=== PATIENT | male | born 1945 | race American Indian/Alaskan Native ===

== ENCOUNTER 2019-09-05 23:31 | Inpatient (IN) | payer MEDICARE, OTHER ==
[2019-09-06] MEDS ORDERED: predniSONE 20 MG TAB PO ONE (02:08)
[2019-09-06] MEDS ORDERED: ALBUTEROL 2.5 MG/3 ML NEBU IH ONE (02:10)
[2019-09-06] MEDS ORDERED: IPRATROPIUM 0.02% NEBU 2.5 ML IH ONE (02:10)
--- NOTE | 2019-09-06 02:13 | Emergency Department Report ---
ED Shortness of Breath HPI - General Chief Complaint: Dyspnea/Respdistress Stated Complaint: SMITH Time Seen by Provider: 09/06/19 02:08 Source: patient Mode of arrival: Ambulatory Limitations: No Limitations - History of Present Illness Initial Comments: Mr. Coelho is a very pleasant 74-year-old male with history of COPD who presents with shortness of breath cough for several days. Productive cough with white- yellow sputum. Does not use oxygen at home. Worse with exertion. PCP Mary Annecare Shortness of breath worse with exertion. Positive subjective fever. MD Complaint: shortness of breath, cough -: Gradual, days(s) (2) Severity: severe Consistency: constant Improves With: nothing Worsens With: exertion Known History Of: COPD Associated Symptoms: cough, sputum production - Related Data Home Medications Medication Instructions Recorded Confirmed Last Taken Tamsulosin [Flomax] 0.4 mg PO QDAY 09/06/19 09/06/19 Unknown Allergies Allergy/AdvReac Type Severity Reaction Status Date / Time No Known Allergies Allergy Unverified 09/05/19 23:44 ED Review of Systems ROS: Stated complaint: SMITH Other details as noted in HPI Comment: All other systems reviewed and negative Constitutional: fever, malaise Respiratory: cough, shortness of breath Cardiovascular: denies: chest pain Gastrointestinal: denies: abdominal pain ED Past Medical Hx - Past Medical History Previous Medical History?: Yes Hx COPD: Yes (Doesn't use O2 at home) Additional medical history: Eye infection - Social History Smoking Status: Former Smoker Other Social History: Retired, worked in the medical industry, worked in a blood bank. - Medications Home Medications: Home Medications Medication Instructions Recorded Confirmed Last Taken Type Tamsulosin [Flomax] 0.4 mg PO QDAY 09/06/19 09/06/19 Unknown History ED Physical Exam - General Limitations: No Limitations General appearance: alert, other (mild work of breathing, speaking full sentences with effort) - Head Head exam: Present: atraumatic, normocephalic - Eye Eye exam: Present: normal appearance - ENT ENT exam: Present: mucous membranes moist - Neck Neck exam: Present: normal inspection, full ROM. Absent: tenderness, meningismus - Respiratory Respiratory exam: Present: decreased breath sounds, prolonged expiratory, other (poor air movement) - Cardiovascular Cardiovascular Exam: Present: normal rhythm, tachycardia, normal heart sounds. Absent: systolic murmur, diastolic murmur, rubs, gallop - GI/Abdominal GI/Abdominal exam: Present: soft, normal bowel sounds. Absent: distended, tenderness, guarding, rebound - Rectal Rectal exam: Present: deferred - Extremities Exam Extremities exam: Present: normal inspection - Neurological Exam Neurological exam: Present: alert, oriented X3 - Psychiatric Psychiatric exam: Present: normal affect, normal mood - Skin Skin exam: Present: warm, dry, intact, normal color. Absent: rash ED Course Vital Signs 09/05/19 09/05/19 09/06/19 23:40 23:50 02:05 Temperature 98.9 F 98.9 F 98.3 F Pulse Rate 125 H 120 H 113 H Pulse Rate [ Anterior Bilateral Throughout] Respiratory 18 18 16 Rate Respiratory Rate [Anterior Bilateral Throughout] Blood Pressure 135/76 135/76 133/76 Blood Pressure 133/76 [Left] O2 Sat by Pulse 90 88 91 Oximetry 09/06/19 09/06/19 09/06/19 02:06 02:15 02:30 Temperature Pulse Rate Pulse Rate [ 101 H Anterior Bilateral Throughout] Respiratory 14 16 Rate Respiratory 18 Rate [Anterior Bilateral Throughout] Blood Pressure 133/76 129/82 Blood Pressure [Left] O2 Sat by Pulse 93 93 Oximetry 09/06/19 09/06/19 02:45 03:00 Temperature Pulse Rate 104 H 93 H Pulse Rate [ Anterior Bilateral Throughout] Respiratory 15 19 Rate Respiratory Rate [Anterior Bilateral Throughout] Blood Pressure 133/76 151/78 Blood Pressure [Left] O2 Sat by Pulse 98 92 Oximetry ED Medical Decision Making - Lab Data Result diagrams: 09/06/19 02:15 09/06/19 02:15 - EKG Data EKG shows normal: sinus rhythm, axis, intervals, QRS complexes Rate: normal, tachycardia (rate 100 bpm) - EKG Data Interpretation: no acute changes, normal EKG - Radiology Data Radiology results: report reviewed Chest radiograph: No acute process according to radiologist's impression - Medical Decision Making Acute respiratory failure and hypoxia acute COPD exacerbation requiring oxygen supplementation. Admitted to the hospitalist service. Critical care attestation.: If time is entered above; I have spent that time in minutes in the direct care of this critically ill patient, excluding procedure time. ED Disposition Clinical Impression: Acute respiratory failure with hypoxia, COPD with acute exacerbation Disposition: OP ADMIT IP TO THIS HOSP Is pt being admited?: Yes Does the pt Need Aspirin: No Condition: Stable
[2019-09-06 02:40] LABS: Hematocrit 41.8 % (35.5-45.6); Hemoglobin 13.7 gm/dl (11.8-15.2); Mean Corpuscular HGB Conc 33 % (32-34); Mean Corpuscular Volume 96 fl (84-94); Platelet Count 298 K/mm3 (140-440); Red Blood Count 4.35 M/mm3 (3.65-5.03); Red Cell Distribution Width 14.1 % (13.2-15.2)
[2019-09-06 02:46] LABS: BUN/Creatinine Ratio 15; Blood Urea Nitrogen 18 mg/dL (9-20); Hemolysis Index 5
--- NOTE | 2019-09-06 02:51 | XRay Report ---
CHEST 1 VIEW, 09/06/2019 2:18 AM CLINICAL INFORMATION/INDICATION: Shortness of breath. Productive cough. COMPARISON: None FINDINGS: SUPPORT DEVICES: None. HEART: The cardiac silhouette is normal in size. LUNGS/PLEURA: There is no focal airspace consolidation or significant pleural effusion. ADDITIONAL FINDINGS: No additional acute findings. IMPRESSION: 1. No evidence of acute cardiopulmonary process. Signer Name: Bety Murdock MD Signed: 09/06/2019 2:46 AM Workstation Name: [employer]
[2019-09-06] MEDS ORDERED: levoFLOXacin 750 MG TAB PO ONE (03:30)
[2019-09-06 04:52] LABS: Calcium 9.3 mg/dL (8.4-10.2)
[2019-09-06 05:45] LABS: Band Neutrophils # (Manual) 3.6 K/mm3; Basophils % (Manual) 0 % (0.0-1.8); Monocytes % (Manual) 0 % (0.0-7.3); Total Cells Counted 100
[2019-09-06 05:46] LABS: Platelet Estimate Consistent w Auto; RBC Morphology Normal
--- NOTE | 2019-09-06 07:46 | History and Physical Report ---
History of Present Illness Date of admission: 09/06/19 05:27 Chief complaint: Shortness of breath History of present illness: 74-year-old man with past medical history of COPD who presents with shortness of breath times several days. Dyspnea on exertion, cough productive of scant whitish-yellowish sputum. He states that this is consistent with his COPD exacerbation. He has been having shortness of breath cough and wheezing. Sputum production. Denies orthopnea. Denies chest pain. Denies fever. -He uses Advair at home and albuterol for breakthrough Past medical history; COPD, BPH Past surgical history; left rotator cuff surgery, arthroscopic surgery of both knees Social history; retired, used to work in the [employer]. Denies alcohol or illicit drug abuse.former smoker, quit 6 years ago Family history; denies family history of asthma or chronic lung disease Medications and Allergies Allergies Allergy/AdvReac Type Severity Reaction Status Date / Time No Known Allergies Allergy Unverified 09/05/19 23:44 Home Medications Medication Instructions Recorded Confirmed Last Taken Type ALBUTEROL Inhaler (OR & NICU) 2 puff IH QID PRN 09/06/19 09/06/19 Unknown History [ProAir HFA Inhaler] Fluticasone/Salmeterol [Advair 250 mcg PO BID 09/06/19 09/06/19 Unknown History Diskus 250-50 mcg] Loratadine 10 mg PO DAILY 09/06/19 09/06/19 Unknown History Montelukast 10 mg PO QPM 09/06/19 09/06/19 Unknown History Simvastatin 40 mg PO HS 09/06/19 09/06/19 Unknown History Tamsulosin [Flomax] 0.4 mg PO QDAY 09/06/19 09/06/19 Unknown History Review of Systems All systems: negative Constitutional: no anorexia Ears, nose, mouth and throat: no ear pain Cardiovascular: no chest pain Respiratory: cough, cough with sputum, shortness of breath Gastrointestinal: no nausea Genitourinary Male: no dysuria Rectal: no pain Musculoskeletal: no neck stiffness Integumentary: no rash Neurological: no head injury Psychiatric: no anxiety Endocrine: no cold intolerance Hematologic/Lymphatic: no easy bruising Allergic/Immunologic: no urticaria Exam - Constitutional Vitals: Temp Pulse Resp BP Pulse Ox 98.3 F 101 H 22 132/99 94 09/06/19 02:05 09/06/19 05:30 09/06/19 05:30 09/06/19 05:30 09/06/19 05:45 General appearance: Present: no acute distress, well-nourished - EENT Eyes: Present: PERRL ENT: hearing intact, clear oral mucosa - Neck Neck: Present: supple, normal ROM - Respiratory Respiratory effort: normal Respiratory: bilateral: diminished - Cardiovascular Heart Sounds: Present: S1 & S2. Absent: rub, click - Extremities Extremities: pulses symmetrical, No edema Peripheral Pulses: within normal limits - Abdominal General gastrointestinal: Present: soft, non-tender, non-distended, normal bowel sounds Male genitourinary: Present: normal - Integumentary Integumentary: Present: clear, warm, dry - Musculoskeletal Musculoskeletal: gait normal, strength equal bilaterally - Psychiatric Psychiatric: appropriate mood/affect, intact judgment & insight - Neurologic Neurologic: CNII-XII intact, moves all extremities Results - Labs CBC & Chem 7: 09/06/19 02:15 09/06/19 02:15 Labs: Laboratory Last Values WBC 15.1 K/mm3 (4.5-11.0) H 09/06/19 02:15 RBC 4.35 M/mm3 (3.65-5.03) 09/06/19 02:15 Hgb 13.7 gm/dl (11.8-15.2) 09/06/19 02:15 Hct 41.8 % (35.5-45.6) 09/06/19 02:15 MCV 96 fl (84-94) H 09/06/19 02:15 MCH 31 pg (28-32) 09/06/19 02:15 MCHC 33 % (32-34) 09/06/19 02:15 RDW 14.1 % (13.2-15.2) 09/06/19 02:15 Plt Count 298 K/mm3 (140-440) 09/06/19 02:15 Add Manual Diff Complete 09/06/19 02:15 Total Counted 100 09/06/19 02:15 Seg Neutrophils % [employer] Worker 09/06/19 02:15 Seg Neuts % (Manual) 69.0 % (40.0-70.0) 09/06/19 02:15 Band Neutrophils % 24.0 % 09/06/19 02:15 Lymphocytes % (Manual) 0 % (13.4-35.0) L 09/06/19 02:15 Reactive Lymphs % (Man) 0 % 09/06/19 02:15 Monocytes % (Manual) 0 % (0.0-7.3) 09/06/19 02:15 Eosinophils % (Manual) 7.0 % (0.0-4.3) H 09/06/19 02:15 Basophils % (Manual) 0 % (0.0-1.8) 09/06/19 02:15 Metamyelocytes % 0 % 09/06/19 02:15 Myelocytes % 0 % 09/06/19 02:15 Promyelocytes % 0 % 09/06/19 02:15 Blast Cells % 0 % 09/06/19 02:15 Nucleated RBC % 1.0 % (0.0-0.9) H 09/06/19 02:15 Seg Neutrophils # Man 10.4 K/mm3 (1.8-7.7) H 09/06/19 02:15 Band Neutrophils # 3.6 K/mm3 09/06/19 02:15 Lymphocytes # (Manual) 0.0 K/mm3 (1.2-5.4) L 09/06/19 02:15 Abs React Lymphs (Man) 0.0 K/mm3 09/06/19 02:15 Monocytes # (Manual) 0.0 K/mm3 (0.0-0.8) 09/06/19 02:15 Eosinophils # (Manual) 1.1 K/mm3 (0.0-0.4) H 09/06/19 02:15 Basophils # (Manual) 0.0 K/mm3 (0.0-0.1) 09/06/19 02:15 Metamyelocytes # 0.0 K/mm3 09/06/19 02:15 Myelocytes # 0.0 K/mm3 09/06/19 02:15 Promyelocytes # 0.0 K/mm3 09/06/19 02:15 Blast Cells # 0.0 K/mm3 09/06/19 02:15 WBC Morphology Not Reportable 09/06/19 02:15 Hypersegmented Neuts Not Reportable 09/06/19 02:15 Hyposegmented Neuts Not Reportable 09/06/19 02:15 Hypogranular Neuts Not Reportable 09/06/19 02:15 Smudge Cells Not Reportable 09/06/19 02:15 Toxic Granulation Not Reportable 09/06/19 02:15 Toxic Vacuolation Not Reportable 09/06/19 02:15 Dohle Bodies Not Reportable 09/06/19 02:15 Pelger-Huet Anomaly Not Reportable 09/06/19 02:15 Leatha Rods Not Reportable 09/06/19 02:15 Platelet Estimate Consistent w auto 09/06/19 02:15 Clumped Platelets Not Reportable 09/06/19 02:15 Plt Clumps, EDTA Not Reportable 09/06/19 02:15 Large Platelets Not Reportable 09/06/19 02:15 Giant Platelets Not Reportable 09/06/19 02:15 Platelet Satelliting Not Reportable 09/06/19 02:15 Plt Morphology Comment Not Reportable 09/06/19 02:15 RBC Morphology Normal 09/06/19 02:15 Dimorphic RBCs Not Reportable 09/06/19 02:15 Polychromasia Not Reportable 09/06/19 02:15 Hypochromasia Not Reportable 09/06/19 02:15 Poikilocytosis Not Reportable 09/06/19 02:15 Anisocytosis Not Reportable 09/06/19 02:15 Microcytosis Not Reportable 09/06/19 02:15 Macrocytosis Not Reportable 09/06/19 02:15 Spherocytes Not Reportable 09/06/19 02:15 Pappenheimer Bodies Not Reportable 09/06/19 02:15 Sickle Cells Not Reportable 09/06/19 02:15 Target Cells Not Reportable 09/06/19 02:15 Tear Drop Cells Not Reportable 09/06/19 02:15 Ovalocytes Not Reportable 09/06/19 02:15 Helmet Cells Not Reportable 09/06/19 02:15 Goldstein-Hal[place] Bodies Not Reportable 09/06/19 02:15 [place] Rings Not Reportable 09/06/19 02:15 [employer] Cells Not Reportable 09/06/19 02:15 Bite Cells Not Reportable 09/06/19 02:15 Crenated Cell Not Reportable 09/06/19 02:15 Elliptocytes Not Reportable 09/06/19 02:15 Acanthocytes (Spur) Not Reportable 09/06/19 02:15 Rouleaux Not Reportable 09/06/19 02:15 Hemoglobin C Crystals Not Reportable 09/06/19 02:15 Schistocytes Not Reportable 09/06/19 02:15 Malaria parasites Not Reportable 09/06/19 02:15 Usman Bodies Not Reportable 09/06/19 02:15 Hem Pathologist Commnt No 09/06/19 02:15 Sodium 137 mmol/L (137-145) 09/06/19 02:15 Potassium 3.7 mmol/L (3.6-5.0) 09/06/19 02:15 Chloride 100.1 mmol/L (98-107) 09/06/19 02:15 Carbon Dioxide 23 mmol/L (22-30) 09/06/19 02:15 Anion Gap 18 mmol/L 09/06/19 02:15 BUN 18 mg/dL (9-20) 09/06/19 02:15 Creatinine 1.2 mg/dL (0.8-1.5) 09/06/19 02:15 Estimated GFR > 60 ml/min 09/06/19 02:15 BUN/Creatinine Ratio 15 % 09/06/19 02:15 Glucose 145 mg/dL (75-100) H 09/06/19 02:15 Calcium 9.3 mg/dL (8.4-10.2) 09/06/19 02:15 Troponin T < 0.010 ng/mL (0.00-0.029) 09/06/19 02:15 - Imaging and Cardiology Chest x-ray: image reviewed (No acute findings) Assessment and Plan Assessment and plan: 74-year-old man with COPD exacerbation Copd exacerbation; steroids, nebs, pulmonology consults, aggressive chest PT BPH continue Flomax DVT prophylaxis; Lovenox and early ambulation VTE prophylaxis?: Chemical
[2019-09-06] MEDS ORDERED: ACETAMINOPHEN 325 MG TAB PO PRN (07:49)
[2019-09-06] MEDS ORDERED: ALBUTEROL 2.5 MG/3 ML NEBU IH PRN (07:49)
[2019-09-06] MEDS ORDERED: ONDANSETRON 4 MG/2 ML INJ IV PRN (07:49)
[2019-09-06] MEDS: IPRATROPIUM/ALBUTEROL SULFATE 3 ML AMPUL.NEB IH SCH ×3 (09:14→21:59)
[2019-09-06] MEDS: BUDESONIDE 0.5 MG/2 ML NEBU IH SCH ×2 (09:14→21:59)
[2019-09-06] MEDS: ARFORMOTEROL 15 MCG/2 ML NEBU IH SCH ×2 (09:14→21:59)
[2019-09-06] MEDS: TAMSULOSIN 0.4 MG CAP PO SCH (10:07)
[2019-09-06] MEDS: methylPREDNISolone Sod Succinate 40 MG/1 ML INJ IV SCH ×2 (14:23→21:42)
--- NOTE | 2019-09-06 14:28 | Consultation ---
History of Present Illness Consult date: 09/06/19 Reason for consult: dyspnea, cough, COPD History of present illness: pulmonary and critical care consultation Dr. Almanzar thank you for asking us to participate in the care of this patient. 74-year-old man with past medical history of COPD who presents with shortness of breath for several days. Dyspnea on exertion, cough productive of scant whitish-yellowish sputum.Patient also complained nasal congestion. Patient said he has some sinus problems. Patient denies fever, chest pain. Patient has histo ry of smoking 30 years 1/2 a pack a day. 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 Patient denies other medical problems. Patient resting on 2 litres O2. O2 saturation 98%. Chest xray reported no evidence of cardiopulmonary process. Past History Past Medical History: COPD Medications and Allergies Allergies Allergy/AdvReac Type Severity Reaction Status Date / Time No Known Allergies Allergy Unverified 09/05/19 23:44 Home Medications Medication Instructions Recorded Confirmed Last Taken Type ALBUTEROL Inhaler (OR & NICU) 2 puff IH QID PRN 09/06/19 09/06/19 Unknown History [ProAir HFA Inhaler] Fluticasone/Salmeterol [Advair 250 mcg PO BID 09/06/19 09/06/19 Unknown History Diskus 250-50 mcg] Loratadine 10 mg PO DAILY 09/06/19 09/06/19 Unknown History Montelukast 10 mg PO QPM 09/06/19 09/06/19 Unknown History Simvastatin 40 mg PO HS 09/06/19 09/06/19 Unknown History Tamsulosin [Flomax] 0.4 mg PO QDAY 09/06/19 09/06/19 Unknown History Active Meds: Active Medications Acetaminophen (Tylenol) 650 mg PO Q4H PRN PRN Reason: Pain MILD(1-3)/Fever >100.5/MARTINEZ Albuterol (Proventil) 2.5 mg IH Q4HRT PRN PRN Reason: Shortness Of Breath Albuterol/Ipratropium (Duoneb *Not For Prn Use*) 1 ampul IH Q6HRT [facility] Last Admin: 09/06/19 09:14 Dose: Not Given Documented by: Arformoterol Tartrate (Brovana Nebu) 15 mcg IH Q12HRT [facility] Last Admin: 09/06/19 09:14 Dose: 15 mcg Documented by: Budesonide (Pulmicort) 0.5 mg IH Q12HRT [facility] Last Admin: 09/06/19 09:14 Dose: 0.5 mg Documented by: Enoxaparin Sodium (Enoxaparin) 40 mg SUB-Q QDAY@2200 [facility] Methylprednisolone Sodium Succinate (Solu-Medrol) 40 mg IV Q8HR [facility] Ondansetron HCl (Zofran) 4 mg IV Q8H PRN PRN Reason: Nausea And Vomiting Pravastatin Sodium (Pravachol) 80 mg PO QHS [facility] Sodium Chloride (Sodium Chloride Flush Syringe 10 Ml) 10 ml IV BID [facility] Last Admin: 09/06/19 10:07 Dose: 10 ml Documented by: Sodium Chloride (Sodium Chloride Flush Syringe 10 Ml) 10 ml IV PRN PRN PRN Reason: LINE FLUSH Tamsulosin HCl (Flomax) 0.4 mg PO QDAY [facility] Last Admin: 09/06/19 10:07 Dose: 0.4 mg Documented by: Review of Systems All systems: negative Physical Examination Vital signs: Vital Signs Temp Pulse Resp BP Pulse Ox 98.9 F 125 H 18 135/76 90 09/05/19 23:40 09/05/19 23:40 09/05/19 23:40 09/05/19 23:40 09/05/19 23:40 General appearance: no acute distress, alert Eyes: non-icteric ENT: oropharynx moist Neck: supple, no JVD Ascultation: Bilateral: diminished breath sounds Cardiovascular: regular rate and rhythm Gastrointestinal: normoactive bowel sounds, soft, non-tender Integumentary: normal Extremities: no cyanosis, no edema Musculoskeletal: no deformities Gait: other (resting in bed at this time.) normal mental status, non-focal exam, pupils equal and round, CN II-XII normal mood appropriate Results - Laboratory Findings CBC and BMP: 09/06/19 02:15 09/06/19 02:15 Abnormal lab findings: Abnormal Labs 09/06/19 09/06/19 02:15 02:15 WBC 15.1 H MCV 96 H Lymphocytes % (Manual) 0 L Eosinophils % (Manual) 7.0 H Nucleated RBC % 1.0 H Seg Neutrophils # Man 10.4 H Lymphocytes # (Manual) 0.0 L Eosinophils # (Manual) 1.1 H Glucose 145 H - Diagnostic Findings Chest x-ray: report reviewed (No evidence of acute cardiopulmonary process.), image reviewed Assessment and Plan 74-year-old man with past medical history of COPD who presents with shortness of breath for several days. Dyspnea on exertion, cough productive of scant whitish-yellowish sputum.Patient also complained nasal congestion. Patient said he has some sinus problems. Patient denies fever, chest pain. Patient has history of smoking 30 years 1/2 a pack a day. 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 Patient denies other medical problems. Patient resting on 2 litres O2. O2 saturation 98%. Chest xray reported no evidence of cardiopulmonary process. - Patient Problems (1) Acute respiratory failure with hypoxia Current Visit: Yes Status: Acute Plan to address problem: O2 2 litres via nasal canula. Albuterol/atrovent aerosol treatments q 6 hours. Continue I/V solumedrol. Continue S/C Lovenox. Continue orevacid. Continue Levaquin. (2) COPD with acute exacerbation Current Visit: Yes Status: Acute Plan to address problem: O2 2 litres via nasal canula. Albuterol/atrovent aerosol treatments q 6 hours. Continue I/V solumedrol. Continue S/C Lovenox. Continue orevacid. Continue Levaquin PFTs as out patient. (3) Acute bronchitis Current Visit: Yes Status: Acute Plan to address problem: Recommend to continue PO Levaquin.
[2019-09-06] MEDS: ENOXAPARIN 40 MG/0.4 ML INJ SUB-Q SCH (21:42)
[2019-09-06] MEDS: PRAVASTATIN 80 MG TAB PO SCH (21:42)
[2019-09-06] MEDS ORDERED: NON-FORMULARY EACH (Simvastatin [Simvastatin] 40 MG) PO SCH (22:00)
[2019-09-07] MEDS: IPRATROPIUM/ALBUTEROL SULFATE 3 ML AMPUL.NEB IH SCH ×4 (01:57→21:07)
[2019-09-07] MEDS: methylPREDNISolone Sod Succinate 40 MG/1 ML INJ IV SCH ×3 (05:32→21:31)
[2019-09-07] MEDS: BUDESONIDE 0.5 MG/2 ML NEBU IH SCH ×2 (08:10→21:07)
[2019-09-07] MEDS: ARFORMOTEROL 15 MCG/2 ML NEBU IH SCH ×2 (08:10→21:08)
--- NOTE | 2019-09-07 09:31 | Progress Note ---
Assessment and Plan 74-year-old man with past medical history of COPD who presents with shortness of breath for several days. Dyspnea on exertion, cough productive of scant whitish-yellowish sputum.Patient also complained nasal congestion. Patient said he has some sinus problems. Patient denies fever, chest pain. Patient has history of smoking 30 years 1/2 a pack a day. 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 Patient denies other medical problems. Patient resting on 2 litres O2. O2 saturation 98%. Chest xray reported no evidence of cardiopulmonary process. - Patient Problems (1) Acute respiratory failure with hypoxia Current Visit: Yes Status: Acute Plan to address problem: O2 2 litres via nasal canula. Albuterol/atrovent aerosol treatments q 6 hours. Continue I/V solumedrol. Continue S/C Lovenox. Continue orevacid. Continue Levaquin. (2) COPD with acute exacerbation Current Visit: Yes Status: Acute Plan to address problem: O2 2 litres via nasal canula. Albuterol/atrovent aerosol treatments q 6 hours. Continue I/V solumedrol. Continue S/C Lovenox. Continue orevacid. Continue Levaquin PFTs as out patient. (3) Acute bronchitis Current Visit: Yes Status: Acute Plan to address problem: Recommend to continue PO Levaquin. Subjective Date of service: 09/07/19 Objective Vital Signs - 12hr 09/06/19 09/06/19 09/07/19 22:00 22:01 01:59 Temperature Pulse Rate Pulse Rate [ 106 H 104 H Anterior Bilateral Throughout] Pulse Rate [ 102 H Right Brachial] Respiratory 20 Rate Respiratory 20 20 Rate [Anterior Bilateral Throughout] Blood Pressure Blood Pressure [Left] O2 Sat by Pulse 97 Oximetry 09/07/19 09/07/19 09/07/19 02:08 07:58 08:10 Temperature 98.6 F 97.8 F Pulse Rate 102 H 100 H Pulse Rate [ 102 H Anterior Bilateral Throughout] Pulse Rate [ Right Brachial] Respiratory 20 20 Rate Respiratory 20 Rate [Anterior Bilateral Throughout] Blood Pressure 101/48 Blood Pressure 98/50 [Left] O2 Sat by Pulse 97 94 Oximetry 09/07/19 08:20 Temperature Pulse Rate Pulse Rate [ Anterior Bilateral Throughout] Pulse Rate [ Right Brachial] Respiratory Rate Respiratory Rate [Anterior Bilateral Throughout] Blood Pressure Blood Pressure [Left] O2 Sat by Pulse 96 Oximetry Constitutional: no acute distress, alert Eyes: non-icteric ENT: oropharynx moist Neck: supple, no JVD Ascultation: Bilateral: diminished breath sounds Cardiovascular: regular rate and rhythm Gastrointestinal: normoactive bowel sounds, soft, non-tender Integumentary: normal Extremities: no cyanosis, no edema Neurologic: normal mental status, non-focal exam, pupils equal and round, CN II- XII normal Psychiatric: mood appropriate CBC and BMP: 09/06/19 02:15 09/06/19 02:15 ABG, PT/INR, D-dimer: ABG POC ABG pH 7.397 (7.35-7.45) 09/07/19 08:29 POC ABG pCO2 43.5 (35-45) 09/07/19 08:29 POC ABG pO2 67 (80-105) L 09/07/19 08:29 POC ABG HCO3 26.7 (22-26 mml/L) 09/07/19 08:29 POC ABG Total CO2 28 (23-27mmol/L) 09/07/19 08:29 POC ABG O2 Sat 93 09/07/19 08:29 Abnormal lab findings: Abnormal Labs 09/06/19 09/06/19 09/07/19 02:15 02:15 08:29 WBC 15.1 H MCV 96 H Lymphocytes % (Manual) 0 L Eosinophils % (Manual) 7.0 H Nucleated RBC % 1.0 H Seg Neutrophils # Man 10.4 H Lymphocytes # (Manual) 0.0 L Eosinophils # (Manual) 1.1 H POC ABG pO2 67 L Glucose 145 H
[2019-09-07] MEDS: TAMSULOSIN 0.4 MG CAP PO SCH (09:36)
--- NOTE | 2019-09-07 11:46 | Consultation ---
History of Present Illness - Reason for Consult Consult date: 09/07/19 - History of Present Illness 74 yo M PMHx COPD admitted to the hospital for SOB which began several days prior to admission. He complains of associated productive cough of yellowish sputum and dyspnea on exertion. He otherwise denies fevers, sweats, chills. He is a current smoker, otherwise denies symptoms. Afebrile since admission with a white count of 15. Currently receiving cefepime. Blood cultures positive for GNR pending identification and MICs. Imaging personally reviewed: 09/06 CXR - no acute process. Review of systems: Bold if positive; otherwise negative GENERAL: fever, chills, weight loss, fatigue, night sweats EYES: blurry vision, eye pain HENT: headache, hearing loss, sore throat, dysphagia, sinus pain CARDIO: chest pain, palpitations, orthopnea PULM: shortness of breath, wheezing, cough, sputum, hemoptysis GI: nausea, vomiting, diarrhea, abdominal pain, blood in stool : urinary frequency, urgency, dysuria, urethral discharge MSK: joint pain, back pain, swelling SKIN: rash, redness HEME: easy bruising, bleeding Past History Past Medical History: COPD Past Surgical History: No surgical history Social history: smoking Family history: CAD Medications and Allergies Allergies Allergy/AdvReac Type Severity Reaction Status Date / Time No Known Allergies Allergy Unverified 09/05/19 23:44 Home Medications Medication Instructions Recorded Confirmed Last Taken Type ALBUTEROL Inhaler (OR & NICU) 2 puff IH QID PRN 09/06/19 09/06/19 Unknown History [ProAir HFA Inhaler] Fluticasone/Salmeterol [Advair 250 mcg PO BID 09/06/19 09/06/19 Unknown History Diskus 250-50 mcg] Loratadine 10 mg PO DAILY 09/06/19 09/06/19 Unknown History Montelukast 10 mg PO QPM 09/06/19 09/06/19 Unknown History Simvastatin 40 mg PO HS 09/06/19 09/06/19 Unknown History Tamsulosin [Flomax] 0.4 mg PO QDAY 09/06/19 09/06/19 Unknown History Active Meds: Active Medications Acetaminophen (Tylenol) 650 mg PO Q4H PRN PRN Reason: Pain MILD(1-3)/Fever >100.5/MARTINEZ Albuterol (Proventil) 2.5 mg IH Q4HRT PRN PRN Reason: Shortness Of Breath Albuterol/Ipratropium (Duoneb *Not For Prn Use*) 1 ampul IH Q6HRT [facility], 1928–1983 Last Admin: 09/07/19 08:10 Dose: Not Given Documented by: Arformoterol Tartrate (Brovana Nebu) 15 mcg IH Q12HRT [facility], [facility]–1983 Last Admin: 09/07/19 08:10 Dose: 15 mcg Documented by: Budesonide (Pulmicort) 0.5 mg IH Q12HRT [facility], [facility]1983 Last Admin: 09/07/19 08:10 Dose: 0.5 mg Documented by: Enoxaparin Sodium (Enoxaparin) 40 mg SUB-Q QDAY@2200 [facility], [facility]1983 Last Admin: 09/06/19 21:42 Dose: 40 mg Documented by: Cefepime HCl (Cefepime/Ns 2 Gm/100 Ml) 2 gm in 100 mls @ 200 mls/hr IV Q8HR [facility], [facility]1983; Protocol Methylprednisolone Sodium Succinate (Solu-Medrol) 40 mg IV Q8HR [facility] Last Admin: 09/07/19 05:32 Dose: 40 mg Documented by: Ondansetron HCl (Zofran) 4 mg IV Q8H PRN PRN Reason: Nausea And Vomiting Pravastatin Sodium (Pravachol) 80 mg PO QHS [facility] Last Admin: 09/06/19 21:42 Dose: 80 mg Documented by: Sodium Chloride (Sodium Chloride Flush Syringe 10 Ml) 10 ml IV BID [facility] Last Admin: 09/07/19 09:36 Dose: 10 ml Documented by: Sodium Chloride (Sodium Chloride Flush Syringe 10 Ml) 10 ml IV PRN PRN PRN Reason: LINE FLUSH Last Admin: 09/06/19 14:24 Dose: 10 ml Documented by: Tamsulosin HCl (Flomax) 0.4 mg PO QDAY [facility] Last Admin: 09/07/19 09:36 Dose: 0.4 mg Documented by: Physical Examination - Physical Exam Narrative exam: General Normal appearance, well developed, no acute distress Eyes - PERRLA, EOM intact ENT - Moist mucous membranes, no lymphadenopathy Neck - No noticeable or palpable swelling, redness or rash around throat or on face Lymph Nodes - No lymphadenopathy Cardiovascular - RRR no m/r/g, no JVD, no carotid bruits Lungs - Clear to auscultation, no use of accessory muscles, no crackles or wheezes. Decreased breath sounds Skin - No rashes, skin warm and dry, no erythematous areas Abdomen - Normal bowel sounds, abdomen soft and nontender Extremities - No edema, cyanosis or clubbing Musculoskeletal - 5/5 strength, normal range of motion, no swollen or erythematous joints. Neurological Alert and oriented x 3, CN 2-12 grossly intact. - Constitutional Vitals: Vital Signs Temp Pulse Resp BP Pulse Ox 97.8 F 102 H 20 101/48 96 09/07/19 07:58 09/07/19 08:10 09/07/19 08:10 09/07/19 07:58 09/07/19 08:20 Temperature -Last 24 Hours Temperature 97.8 F Temperature 98.6 F Temperature 98.3 F Results - Labs CBC & Chem 7: 09/06/19 02:15 09/06/19 02:15 Labs: Abnormal lab results 09/07/19 Range/Units 08:29 POC ABG pO2 67 L (80-105) Assessment and Plan Cultures Blood culture 09/06/19 GNR pending ID and MIRZA Assessment: 74 yo M PMHx COPD and BPH asdmitted with COPD exacerbation and found to be bacteremic 1. Acute sepsis - present with tachycardia and leukocytosis. Secondary to GNR bacteremia 2.GNR bacteremia - unclear source. Would check UA since no obvious pneumonia at this time. Continue cefepime pending ID and MIRZA 3. COPD - management per pulm Recs: - ordered UA - follow up blood culture ID and MIRZA - continue cefepime 2g q8h - de-escalate when cultures finalized. Thank you for the consultation. Will follow. [facility] ([facility] M: [phone] O: [phone] F: [phone]
--- NOTE | 2019-09-07 12:25 | Progress Note ---
Assessment and Plan Assessment and plan: 74-year-old man who presented to the hospital with shortness of breath Copd exacerbation; steroids, nebs, pulmonology consults, aggressive chest PT Gram-negative bacteremia/sepsis Started on empiric antibiotics, chest x-ray negative, obtain UA Question if source is from left eyelid cellulitis, obtain facial CT BPH continue Flomax DVT prophylaxis; Lovenox and early ambulation History Interval history: Complaining of left eyelid swelling and pain Review of systems Constitutional: No fevers, no malaise, no joint pains CVS: No chest pain, no orthopnea, no pedal edema GI: No abdominal pain, no diarrhea, no vomiting, no constipation Respiratory: , Continues to have occasional cough and shortness of breath Hospitalist Physical - Physical exam Narrative exam: General.: Appears well, no distress, nontoxic HEENT: There is swelling and tenderness of patient's left eyelid Neck: supple Cardiac: S1-S2 heard Lungs: Improved air entry today, rare expiratory wheeze Abdomen: soft , nontender, nondistended, bowel sounds positive Extremities: no edema clubbing or cyanosis Skin: no rash or lesions Neurologic: no gross focal deficits Psych: calm, and cooperative - Constitutional Vitals: Temp Pulse Resp BP Pulse Ox 97.8 F 102 H 20 101/48 96 09/07/19 07:58 09/07/19 08:10 09/07/19 08:10 09/07/19 07:58 09/07/19 08:20 General appearance: Present: no acute distress, well-nourished Results - Labs CBC & Chem 7: 09/06/19 02:15 09/06/19 02:15 Labs: Laboratory Last Values WBC 15.1 K/mm3 (4.5-11.0) H 09/06/19 02:15 RBC 4.35 M/mm3 (3.65-5.03) 09/06/19 02:15 Hgb 13.7 gm/dl (11.8-15.2) 09/06/19 02:15 Hct 41.8 % (35.5-45.6) 09/06/19 02:15 MCV 96 fl (84-94) H 09/06/19 02:15 MCH 31 pg (28-32) 09/06/19 02:15 MCHC 33 % (32-34) 09/06/19 02:15 RDW 14.1 % (13.2-15.2) 09/06/19 02:15 Plt Count 298 K/mm3 (140-440) 09/06/19 02:15 Add Manual Diff Complete 09/06/19 02:15 Total Counted 100 09/06/19 02:15 Seg Neutrophils % Signals Collector/Analyst 09/06/19 02:15 Seg Neuts % (Manual) 69.0 % (40.0-70.0) 09/06/19 02:15 Band Neutrophils % 24.0 % 09/06/19 02:15 Lymphocytes % (Manual) 0 % (13.4-35.0) L 09/06/19 02:15 Reactive Lymphs % (Man) 0 % 09/06/19 02:15 Monocytes % (Manual) 0 % (0.0-7.3) 09/06/19 02:15 Eosinophils % (Manual) 7.0 % (0.0-4.3) H 09/06/19 02:15 Basophils % (Manual) 0 % (0.0-1.8) 09/06/19 02:15 Metamyelocytes % 0 % 09/06/19 02:15 Myelocytes % 0 % 09/06/19 02:15 Promyelocytes % 0 % 09/06/19 02:15 Blast Cells % 0 % 09/06/19 02:15 Nucleated RBC % 1.0 % (0.0-0.9) H 09/06/19 02:15 Seg Neutrophils # Man 10.4 K/mm3 (1.8-7.7) H 09/06/19 02:15 Band Neutrophils # 3.6 K/mm3 09/06/19 02:15 Lymphocytes # (Manual) 0.0 K/mm3 (1.2-5.4) L 09/06/19 02:15 Abs React Lymphs (Man) 0.0 K/mm3 09/06/19 02:15 Monocytes # (Manual) 0.0 K/mm3 (0.0-0.8) 09/06/19 02:15 Eosinophils # (Manual) 1.1 K/mm3 (0.0-0.4) H 09/06/19 02:15 Basophils # (Manual) 0.0 K/mm3 (0.0-0.1) 09/06/19 02:15 Metamyelocytes # 0.0 K/mm3 09/06/19 02:15 Myelocytes # 0.0 K/mm3 09/06/19 02:15 Promyelocytes # 0.0 K/mm3 09/06/19 02:15 Blast Cells # 0.0 K/mm3 09/06/19 02:15 WBC Morphology Not Reportable 09/06/19 02:15 Hypersegmented Neuts Not Reportable 09/06/19 02:15 Hyposegmented Neuts Not Reportable 09/06/19 02:15 Hypogranular Neuts Not Reportable 09/06/19 02:15 Smudge Cells Not Reportable 09/06/19 02:15 Toxic Granulation Not Reportable 09/06/19 02:15 Toxic Vacuolation Not Reportable 09/06/19 02:15 Dohle Bodies Not Reportable 09/06/19 02:15 Pelger-Huet Anomaly Not Reportable 09/06/19 02:15 Leatha Rods Not Reportable 09/06/19 02:15 Platelet Estimate Consistent w auto 09/06/19 02:15 Clumped Platelets Not Reportable 09/06/19 02:15 Plt Clumps, EDTA Not Reportable 09/06/19 02:15 Large Platelets Not Reportable 09/06/19 02:15 Giant Platelets Not Reportable 09/06/19 02:15 Platelet Satelliting Not Reportable 09/06/19 02:15 Plt Morphology Comment Not Reportable 09/06/19 02:15 RBC Morphology Normal 09/06/19 02:15 Dimorphic RBCs Not Reportable 09/06/19 02:15 Polychromasia Not Reportable 09/06/19 02:15 Hypochromasia Not Reportable 09/06/19 02:15 Poikilocytosis Not Reportable 09/06/19 02:15 Anisocytosis Not Reportable 09/06/19 02:15 Microcytosis Not Reportable 09/06/19 02:15 Macrocytosis Not Reportable 09/06/19 02:15 Spherocytes Not Reportable 09/06/19 02:15 Pappenheimer Bodies Not Reportable 09/06/19 02:15 Sickle Cells Not Reportable 09/06/19 02:15 Target Cells Not Reportable 09/06/19 02:15 Tear Drop Cells Not Reportable 09/06/19 02:15 Ovalocytes Not Reportable 09/06/19 02:15 Helmet Cells Not Reportable 09/06/19 02:15 Goldstein-Putney Bodies Not Reportable 09/06/19 02:15 [place] Rings Not Reportable 09/06/19 02:15 Compa Cells Not Reportable 09/06/19 02:15 Bite Cells Not Reportable 09/06/19 02:15 Crenated Cell Not Reportable 09/06/19 02:15 Elliptocytes Not Reportable 09/06/19 02:15 Acanthocytes (Spur) Not Reportable 09/06/19 02:15 Rouleaux Not Reportable 09/06/19 02:15 Hemoglobin C Crystals Not Reportable 09/06/19 02:15 Schistocytes Not Reportable 09/06/19 02:15 Malaria parasites Not Reportable 09/06/19 02:15 Usman Bodies Not Reportable 09/06/19 02:15 Hem Pathologist Commnt No 09/06/19 02:15 POC ABG pH 7.397 (7.35-7.45) 09/07/19 08:29 POC ABG pCO2 43.5 (35-45) 09/07/19 08:29 POC ABG pO2 67 (80-105) L 09/07/19 08:29 POC ABG HCO3 26.7 (22-26 mml/L) 09/07/19 08:29 POC ABG Total CO2 28 (23-27mmol/L) 09/07/19 08:29 POC ABG O2 Sat 93 09/07/19 08:29 POC ABG Base Excess 2 ((-2) - (+3)mmol/L) 09/07/19 08:29 FiO2 21 % 09/07/19 08:29 Sodium 137 mmol/L (137-145) 09/06/19 02:15 Potassium 3.7 mmol/L (3.6-5.0) 09/06/19 02:15 Chloride 100.1 mmol/L (98-107) 09/06/19 02:15 Carbon Dioxide 23 mmol/L (22-30) 09/06/19 02:15 Anion Gap 18 mmol/L 09/06/19 02:15 BUN 18 mg/dL (9-20) 09/06/19 02:15 Creatinine 1.2 mg/dL (0.8-1.5) 09/06/19 02:15 Estimated GFR > 60 ml/min 09/06/19 02:15 BUN/Creatinine Ratio 15 % 09/06/19 02:15 Glucose 145 mg/dL (75-100) H 09/06/19 02:15 Calcium 9.3 mg/dL (8.4-10.2) 09/06/19 02:15 Troponin T < 0.010 ng/mL (0.00-0.029) 09/06/19 02:15 Active Medications - Current Medications Current Medications: Generic Name Dose Route Start Last Admin Trade Name Freq PRN Reason Stop Dose Admin Acetaminophen 650 mg 09/06/19 07:49 Tylenol PO Q4H PRN Pain MILD(1-3)/Fever >100.5/MARTINEZ Albuterol 2.5 mg 09/06/19 07:49 Proventil IH Q4HRT PRN Shortness Of Breath Albuterol/Ipratropium 1 ampul 09/06/19 08:00 09/07/19 08:10 Duoneb *Not For Prn Use* IH Not Given Q6HRT DAVID Arformoterol Tartrate 15 mcg 09/06/19 10:00 09/07/19 08:10 Brovana Nebu IH 15 mcg Q12HRT DAVID Administration Budesonide 0.5 mg 09/06/19 10:00 09/07/19 08:10 Pulmicort IH 0.5 mg Q12HRT DAVID Administration Enoxaparin Sodium 40 mg 09/06/19 22:00 09/06/19 21:42 Enoxaparin SUB-Q 40 mg QDAY@2200 DAVID Administration Cefepime HCl 2 gm in 100 mls @ 200 mls/hr 09/07/19 14:00 Cefepime/Ns 2 Gm/100 Ml IV Q8HR [facility] Protocol Methylprednisolone Sodium Succinate 40 mg 09/06/19 14:00 09/07/19 05:32 Solu-Medrol IV 40 mg Q8HR DAVID Administration Ondansetron HCl 4 mg 09/06/19 07:49 Zofran IV Q8H PRN Nausea And Vomiting Pravastatin Sodium 80 mg 09/06/19 22:00 09/06/19 21:42 Pravachol PO 80 mg QHS DAVID Administration Sodium Chloride 10 ml 09/06/19 10:00 09/07/19 09:36 Sodium Chloride Flush Syringe 10 Ml IV 10 ml BID DAVID Administration Sodium Chloride 10 ml 09/06/19 07:49 09/06/19 14:24 Sodium Chloride Flush Syringe 10 Ml IV 10 ml PRN PRN Administration LINE FLUSH Tamsulosin HCl 0.4 mg 09/06/19 10:00 09/07/19 09:36 Flomax PO 0.4 mg QDAY DAVID Administration
--- NOTE | 2019-09-07 13:21 | Cat Scan Report ---
CT facial bones w con INDICATION / CLINICAL INFORMATION: 74 years Male; Left eyelid infection. TECHNIQUE: Thin cut axial images obtained to the facial region following contrast. Sagittal and coronal reconstr uctions performed. All CT scans at this location are performed using CT dose reduction for NICO saenz of automated exposure control. COMPARISON: 03/17/2014 - CT sinus FINDINGS: There is complete opacification of the frontal sinuses the right maxillary antrum and ethmoidal air c ells. There is near complete opacification of the left maxillary antrum and sphenoid sinuses, as well as the left mastoid region. High attenuation material is seen within the sinus regions, suggesting c hronic secretions or perhaps a fungal/hemorrhagic component of sinusitis. There is dehiscence along the inferior margin of the left frontal sinus laterally. There is a presume d, subcutaneous abscess adjacent to this region, measuring approximately 1.7 cm transversely by 1.6 c m AP by 1.0 cm craniocaudally. This finding extends to the epidermis and lies superior to the left gl obe. This infection appears to be preseptal in location-no evidence of retro-orbital cellulitis appre ciated. The presumed abscess may be causing mass effect on the superior rectus muscle. The left lacrimal gland is slightly swollen when compared with the right, which may be reactive from the above-mentioned process. There is no evidence of coalescence of air cells in the left mastoid region. IMPRESSION: 1. Significant sinus disease as described above. 2. Dehiscence along the inferior margin of the lateral aspect of the left frontal sinus with adjacent , presumed subcutaneous, preseptal abscess. Signer Name: Bruce Spivey MD, III Signed: 09/07/2019 1:16 PM Workstation Name: [id number]
[2019-09-07] MEDS: CEFEPIME/NS 2 GM/100 ML 2 GM/100 ML BAG IV SCH ×2 (16:33→21:30)
[2019-09-07 17:54] LABS: Bilirubin,Urine NEG (Negative); Blood,Urine NEG (Negative); Color,Urine Straw (Yellow); Protein,Urine <15 mg/dL mg/dL (Negative); Urobilinogen,Urine < 2.0 mg/dL (<2.0); WBC,Urine < 1.0 /HPF (0.0-6.0)
[2019-09-07] MEDS: PRAVASTATIN 80 MG TAB PO SCH (21:32)
[2019-09-07] MEDS: ENOXAPARIN 40 MG/0.4 ML INJ SUB-Q SCH (21:33)
[2019-09-08] MEDS: methylPREDNISolone Sod Succinate 40 MG/1 ML INJ IV SCH ×2 (05:59→13:40)
[2019-09-08] MEDS: ARFORMOTEROL 15 MCG/2 ML NEBU IH SCH (08:31)
[2019-09-08] MEDS: BUDESONIDE 0.5 MG/2 ML NEBU IH SCH (08:31)
[2019-09-08] MEDS: IPRATROPIUM/ALBUTEROL SULFATE 3 ML AMPUL.NEB IH SCH ×2 (08:31→15:16)
--- NOTE | 2019-09-08 09:34 | Progress Note ---
Assessment and Plan Acute respiratory failure with hypoxemia COPD with acute exacerbation Acute bronchitis - continue supplemental oxygen as needed to keep O2 sat's > 90% - continue bronchodilators (VI & LABA) with pulmonary hygiene per RT - continue systemic steroids with slow taper - continue inhaled corticosteroids - consider empiric antibiotics for bacteremia - PT/OT as tolerated - mobility protocols for pressure ulcer prophylaxis - GI & VTE prophylaxis - tobacco abstinence strongly counseled at bedside - Flu & Pneumovax addressed per protocol ... re-evaluate in am & prn Subjective Date of service: 09/08/19 Interval history: Patient is seen today for: Seen and examined at bedside; 24hour events reviewed; nursing and respiratory care staff consulted; no adverse overnight events reported to me; resting peace fully in bed; w/up ongoing for left eyelid pain; breathing easier; denies acute chest pains or SOB Objective Vital Signs - 12hr 09/07/19 09/07/19 09/08/19 21:44 21:51 07:47 Temperature 98.0 F Pulse Rate 96 H Pulse Rate [ Anterior Bilateral Throughout] Respiratory 20 Rate Respiratory Rate [Anterior Bilateral Throughout] Blood Pressure 118/63 O2 Sat by Pulse 95 95 91 Oximetry 09/08/19 09/08/19 08:31 08:33 Temperature Pulse Rate Pulse Rate [ 84 Anterior Bilateral Throughout] Respiratory Rate Respiratory 12 Rate [Anterior Bilateral Throughout] Blood Pressure O2 Sat by Pulse 95 Oximetry Constitutional: no acute distress, alert Eyes: non-icteric ENT: oropharynx moist Neck: supple, no JVD Ascultation: Bilateral: diminished breath sounds Percussion: Bilateral: not dull Cardiovascular: regular rate and rhythm Gastrointestinal: normoactive bowel sounds, soft, non-tender Integumentary: normal Extremities: no cyanosis, no edema Neurologic: normal mental status, non-focal exam, pupils equal and round, CN II- XII normal Psychiatric: mood appropriate CBC and BMP: 09/06/19 02:15 09/06/19 02:15 ABG, PT/INR, D-dimer: ABG POC ABG pH 7.397 (7.35-7.45) 09/07/19 08:29 POC ABG pCO2 43.5 (35-45) 09/07/19 08:29 POC ABG pO2 67 (80-105) L 09/07/19 08:29 POC ABG HCO3 26.7 (22-26 mml/L) 09/07/19 08:29 POC ABG Total CO2 28 (23-27mmol/L) 09/07/19 08:29 POC ABG O2 Sat 93 09/07/19 08:29 Abnormal lab findings: Abnormal Labs 09/06/19 09/06/19 09/07/19 02:15 02:15 08:29 WBC 15.1 H MCV 96 H Lymphocytes % (Manual) 0 L Eosinophils % (Manual) 7.0 H Nucleated RBC % 1.0 H Seg Neutrophils # Man 10.4 H Lymphocytes # (Manual) 0.0 L Eosinophils # (Manual) 1.1 H POC ABG pO2 67 L Glucose 145 H Ur Specific [place] 09/07/19 16:46 WBC MCV Lymphocytes % (Manual) Eosinophils % (Manual) Nucleated RBC % Seg Neutrophils # Man Lymphocytes # (Manual) Eosinophils # (Manual) POC ABG pO2 Glucose Ur Specific [place] 1.000 L Allied health notes reviewed: nursing
[2019-09-08] MEDS: CEFEPIME/NS 2 GM/100 ML 2 GM/100 ML BAG IV SCH (09:41)
[2019-09-08] MEDS: TAMSULOSIN 0.4 MG CAP PO SCH (09:41)
--- NOTE | 2019-09-08 10:06 | Progress Note ---
Assessment and Plan Assessment and plan: 74-year-old man who presented to the hospital with shortness of breath ct face; Significant sinus disease, dehiscence along the inferior margin of the lateral aspect of the left frontal sinus with adjacent presumed subcutaneous abscess Copd exacerbation; steroids, nebs, pulmonology consults, aggressive chest PT Gram-negative bacteremia/sepsis due to preseptal abscess.cellulitis on left eyelid Started on empiric antibiotics, chest x-ray negative, UA, and UC neg admits to having left eyelid cellulitis in the past, and chronic sinus issues for which he has had sinus surgery in the past, he relates he had no improvement since then, He feels like his sinuses are always blocked up Facial ct confirms preseptal abcess and severe sinutisis which was likely the origin of the infection, call to [place] for tranfer where he can have abcess drained and be seen by ENT, waiting to hear back BPH continue Flomax DVT prophylaxis; Lovenox and early ambulation History Interval history: Complaining of left eyelid swelling and pain Review of systems Constitutional: No fevers, no malaise, no joint pains CVS: No chest pain, no orthopnea, no pedal edema GI: No abdominal pain, no diarrhea, no vomiting, no constipation Respiratory: , Continues to have occasional cough and shortness of breath Hospitalist Physical - Physical exam Narrative exam: General.: Appears well, no distress, nontoxic HEENT: There is swelling and tenderness of patient's left eyelid Neck: supple Cardiac: S1-S2 heard Lungs: Improved air entry today, rare expiratory wheeze Abdomen: soft , nontender, nondistended, bowel sounds positive Extremities: no edema clubbing or cyanosis Skin: no rash or lesions Neurologic: no gross focal deficits Psych: calm, and cooperative - Constitutional Vitals: Temp Pulse Resp BP Pulse Ox 98.0 F 84 12 118/63 95 09/08/19 07:47 09/08/19 08:31 09/08/19 08:31 09/08/19 07:47 09/08/19 08:33 General appearance: Present: no acute distress, well-nourished Results - Labs CBC & Chem 7: 09/06/19 02:15 09/06/19 02:15 Labs: Laboratory Last Values WBC 15.1 K/mm3 (4.5-11.0) H 09/06/19 02:15 RBC 4.35 M/mm3 (3.65-5.03) 09/06/19 02:15 Hgb 13.7 gm/dl (11.8-15.2) 09/06/19 02:15 Hct 41.8 % (35.5-45.6) 09/06/19 02:15 MCV 96 fl (84-94) H 09/06/19 02:15 MCH 31 pg (28-32) 09/06/19 02:15 MCHC 33 % (32-34) 09/06/19 02:15 RDW 14.1 % (13.2-15.2) 09/06/19 02:15 Plt Count 298 K/mm3 (140-440) 09/06/19 02:15 Add Manual Diff Complete 09/06/19 02:15 Total Counted 100 09/06/19 02:15 Seg Neutrophils % [employer] Worker 09/06/19 02:15 Seg Neuts % (Manual) 69.0 % (40.0-70.0) 09/06/19 02:15 Band Neutrophils % 24.0 % 09/06/19 02:15 Lymphocytes % (Manual) 0 % (13.4-35.0) L 09/06/19 02:15 Reactive Lymphs % (Man) 0 % 09/06/19 02:15 Monocytes % (Manual) 0 % (0.0-7.3) 09/06/19 02:15 Eosinophils % (Manual) 7.0 % (0.0-4.3) H 09/06/19 02:15 Basophils % (Manual) 0 % (0.0-1.8) 09/06/19 02:15 Metamyelocytes % 0 % 09/06/19 02:15 Myelocytes % 0 % 09/06/19 02:15 Promyelocytes % 0 % 09/06/19 02:15 Blast Cells % 0 % 09/06/19 02:15 Nucleated RBC % 1.0 % (0.0-0.9) H 09/06/19 02:15 Seg Neutrophils # Man 10.4 K/mm3 (1.8-7.7) H 09/06/19 02:15 Band Neutrophils # 3.6 K/mm3 09/06/19 02:15 Lymphocytes # (Manual) 0.0 K/mm3 (1.2-5.4) L 09/06/19 02:15 Abs React Lymphs (Man) 0.0 K/mm3 09/06/19 02:15 Monocytes # (Manual) 0.0 K/mm3 (0.0-0.8) 09/06/19 02:15 Eosinophils # (Manual) 1.1 K/mm3 (0.0-0.4) H 09/06/19 02:15 Basophils # (Manual) 0.0 K/mm3 (0.0-0.1) 09/06/19 02:15 Metamyelocytes # 0.0 K/mm3 09/06/19 02:15 Myelocytes # 0.0 K/mm3 09/06/19 02:15 Promyelocytes # 0.0 K/mm3 09/06/19 02:15 Blast Cells # 0.0 K/mm3 09/06/19 02:15 WBC Morphology Not Reportable 09/06/19 02:15 Hypersegmented Neuts Not Reportable 09/06/19 02:15 Hyposegmented Neuts Not Reportable 09/06/19 02:15 Hypogranular Neuts Not Reportable 09/06/19 02:15 Smudge Cells Not Reportable 09/06/19 02:15 Toxic Granulation Not Reportable 09/06/19 02:15 Toxic Vacuolation Not Reportable 09/06/19 02:15 Dohle Bodies Not Reportable 09/06/19 02:15 Pelger-Huet Anomaly Not Reportable 09/06/19 02:15 Leatha Rods Not Reportable 09/06/19 02:15 Platelet Estimate Consistent w auto 09/06/19 02:15 Clumped Platelets Not Reportable 09/06/19 02:15 Plt Clumps, EDTA Not Reportable 09/06/19 02:15 Large Platelets Not Reportable 09/06/19 02:15 Giant Platelets Not Reportable 09/06/19 02:15 Platelet Satelliting Not Reportable 09/06/19 02:15 Plt Morphology Comment Not Reportable 09/06/19 02:15 RBC Morphology Normal 09/06/19 02:15 Dimorphic RBCs Not Reportable 09/06/19 02:15 Polychromasia Not Reportable 09/06/19 02:15 Hypochromasia Not Reportable 09/06/19 02:15 Poikilocytosis Not Reportable 09/06/19 02:15 Anisocytosis Not Reportable 09/06/19 02:15 Microcytosis Not Reportable 09/06/19 02:15 Macrocytosis Not Reportable 09/06/19 02:15 Spherocytes Not Reportable 09/06/19 02:15 Pappenheimer Bodies Not Reportable 09/06/19 02:15 Sickle Cells Not Reportable 09/06/19 02:15 Target Cells Not Reportable 09/06/19 02:15 Tear Drop Cells Not Reportable 09/06/19 02:15 Ovalocytes Not Reportable 09/06/19 02:15 Helmet Cells Not Reportable 09/06/19 02:15 Goldstein-Boon Bodies Not Reportable 09/06/19 02:15 Bend Rings Not Reportable 09/06/19 02:15 [place] Cells Not Reportable 09/06/19 02:15 Bite Cells Not Reportable 09/06/19 02:15 Crenated Cell Not Reportable 09/06/19 02:15 Elliptocytes Not Reportable 09/06/19 02:15 Acanthocytes (Spur) Not Reportable 09/06/19 02:15 Rouleaux Not Reportable 09/06/19 02:15 Hemoglobin C Crystals Not Reportable 09/06/19 02:15 Schistocytes Not Reportable 09/06/19 02:15 Malaria parasites Not Reportable 09/06/19 02:15 Usman Bodies Not Reportable 09/06/19 02:15 Hem Pathologist Commnt No 09/06/19 02:15 POC ABG pH 7.397 (7.35-7.45) 09/07/19 08:29 POC ABG pCO2 43.5 (35-45) 09/07/19 08:29 POC ABG pO2 67 (80-105) L 09/07/19 08:29 POC ABG HCO3 26.7 (22-26 mml/L) 09/07/19 08:29 POC ABG Total CO2 28 (23-27mmol/L) 09/07/19 08:29 POC ABG O2 Sat 93 09/07/19 08:29 POC ABG Base Excess 2 ((-2) - (+3)mmol/L) 09/07/19 08:29 FiO2 21 % 09/07/19 08:29 Sodium 137 mmol/L (137-145) 09/06/19 02:15 Potassium 3.7 mmol/L (3.6-5.0) 09/06/19 02:15 Chloride 100.1 mmol/L (98-107) 09/06/19 02:15 Carbon Dioxide 23 mmol/L (22-30) 09/06/19 02:15 Anion Gap 18 mmol/L 09/06/19 02:15 BUN 18 mg/dL (9-20) 09/06/19 02:15 Creatinine 1.2 mg/dL (0.8-1.5) 09/06/19 02:15 Estimated GFR > 60 ml/min 09/06/19 02:15 BUN/Creatinine Ratio 15 % 09/06/19 02:15 Glucose 145 mg/dL (75-100) H 09/06/19 02:15 Calcium 9.3 mg/dL (8.4-10.2) 09/06/19 02:15 Troponin T < 0.010 ng/mL (0.00-0.029) 09/06/19 02:15 Urine Color Straw (Yellow) 09/07/19 16:46 Urine Turbidity Turbid (Clear) 09/07/19 16:46 Urine pH 6.0 (5.0-7.0) 09/07/19 16:46 Ur Specific [place] 1.000 (1.003-1.030) L 09/07/19 16:46 Urine Protein <15 mg/dl mg/dL (Negative) 09/07/19 16:46 Urine Glucose (UA) Neg mg/dL (Negative) 09/07/19 16:46 Urine Ketones Neg mg/dL (Negative) 09/07/19 16:46 Urine Blood Neg (Negative) 09/07/19 16:46 Urine Nitrite Neg (Negative) 09/07/19 16:46 Urine Bilirubin Neg (Negative) 09/07/19 16:46 Urine Urobilinogen < 2.0 mg/dL (<2.0) 09/07/19 16:46 Ur Leukocyte Esterase Neg (Negative) 09/07/19 16:46 Urine WBC (Auto) < 1.0 /HPF (0.0-6.0) 09/07/19 16:46 Urine RBC (Auto) 2.0 /HPF (0.0-6.0) 09/07/19 16:46 U Epithel Cells (Auto) < 1.0 /HPF (0-13.0) 09/07/19 16:46 Active Medications - Current Medications Current Medications: Generic Name Dose Route Start Last Admin Trade Name Freq PRN Reason Stop Dose Admin Acetaminophen 650 mg 09/06/19 07:49 Tylenol PO Q4H PRN Pain MILD(1-3)/Fever >100.5/MARTINEZ Albuterol 2.5 mg 09/06/19 07:49 Proventil IH Q4HRT PRN Shortness Of Breath Albuterol/Ipratropium 1 ampul 09/08/19 08:00 09/08/19 08:31 Duoneb *Not For Prn Use* IH Not Given TIDRT DAVID Arformoterol Tartrate 15 mcg 09/06/19 10:00 09/08/19 08:31 Brovana Nebu IH 15 mcg Q12HRT DAVID Administration Budesonide 0.5 mg 09/06/19 10:00 09/08/19 08:31 Pulmicort IH 0.5 mg Q12HRT DAVID Administration Enoxaparin Sodium 40 mg 09/06/19 22:00 09/07/19 21:33 Enoxaparin SUB-Q 40 mg QDAY@2200 DAVID Administration Cefepime HCl 2 gm in 100 mls @ 200 mls/hr 09/07/19 14:00 09/08/19 09:41 Cefepime/Ns 2 Gm/100 Ml IV 200 mls/hr Q12HR DAVID Administration Protocol Methylprednisolone Sodium Succinate 40 mg 09/06/19 14:00 09/08/19 05:59 Solu-Medrol IV 40 mg Q8HR DAVID Administration Ondansetron HCl 4 mg 09/06/19 07:49 Zofran IV Q8H PRN Nausea And Vomiting Pravastatin Sodium 80 mg 09/06/19 22:00 09/07/19 21:32 Pravachol PO 80 mg QHS DAVID Administration Sodium Chloride 10 ml 09/06/19 10:00 09/08/19 09:42 Sodium Chloride Flush Syringe 10 Ml IV 10 ml BID DAVID Administration Sodium Chloride 10 ml 09/06/19 07:49 09/06/19 14:24 Sodium Chloride Flush Syringe 10 Ml IV 10 ml PRN PRN Administration LINE FLUSH Tamsulosin HCl 0.4 mg 09/06/19 10:00 09/08/19 09:41 Flomax PO 0.4 mg QDAY DAVID Administration
[2019-09-08 19:22] VITALS: BP 138/62
--- NOTE | 2019-09-09 13:44 | Discharge Summary ---
Providers - Providers Date of Admission: 09/06/19 05:27 Attending physician: ALEC SPRING MD 09/06/19 07:49 Consult to Physician [CONS] Routine Comment: Consulting Provider: GREGG IYER Physician Instructions: Reason For Exam: copd 09/07/19 08:50 Physical Therapy Evaluation and Treat [CONS] Routine Comment: Reason For Exam: weakness 09/07/19 10:20 Consult to Physician [CONS] Routine Comment: called office/ charity Consulting Provider: SANA FRIAS Physician Instructions: Reason For Exam: bacteremia Primary care physician: RECORDS MANAGEMENT DIRECTOR Hospitalization Condition: Stable Hospital course: 74-year-old man who presented to the hospital with shortness of breath ct face; Significant sinus disease, dehiscence along the inferior margin of the lateral aspect of the left frontal sinus with adjacent presumed subcutaneous abscess Copd exacerbation; steroids, nebs, pulmonology consults, aggressive chest PT. Patient improved Gram-negative bacteremia/sepsis due to preseptal abscess.cellulitis on left eyelid Started on empiric antibiotics, chest x-ray negative, UA, and UC neg admits to having left eyelid cellulitis in the past, and chronic sinus issues for which he has had sinus surgery in the past, he relates he had no improvement since then, He feels like his sinuses are always blocked up Facial ct confirms preseptal abcess and severe sinutisis which was likely the origin of the infection, spoke to ENT and hospitalist at [place]. And patient was transferred for ENT evaluation for possible sinus surgery and drainage of abscess. BPH continue Flomax DVT prophylaxis; Lovenox and early ambulation Preventative health counseling performed for 17 minutes Disposition: [id number] [facility] IP Time spent for discharge: 35 minutes Core Measure Documentation - Palliative Care Palliative Care/ Comfort Measures: Not Applicable - Core Measures Any of the following diagnoses?: none Exam - Physical Exam Narrative exam: General.: Appears well, no distress, nontoxic HEENT: There is swelling and tenderness of patient's left eyelid Neck: supple Cardiac: S1-S2 heard Lungs: Improved air entry today, rare expiratory wheeze Abdomen: soft , nontender, nondistended, bowel sounds positive Extremities: no edema clubbing or cyanosis Skin: no rash or lesions Neurologic: no gross focal deficits Psych: calm, and cooperative - Constitutional Vitals: Temp Pulse Resp BP Pulse Ox 98.0 F 95 H 12 138/62 93 09/08/19 13:00 09/08/19 15:16 09/08/19 15:16 09/08/19 13:00 09/08/19 13:00 Plan Follow up with: PRIMARY CARE, [Primary Care Provider] - 3-5 Days
== END 2019-09-08 20:00 | disposition short-term general hospital (02) | DRG 871 ==
LOC: ED 23:31 → 2B-ACE 09-06 05:27
PROVIDERS: ADMIT Internal Medicine Geriatric Medicine; ATTEND Internal Medicine
PROC: 4A033R1 Measurement of Arterial Saturation, Peripheral, Percutaneous Approach (ICD-10-PCS; principal; 2019-09-07)
DX: A41.50 Gram-negative sepsis, unspecified (principal); J96.01 Acute respiratory failure with hypoxia; J44.1 Chronic obstructive pulmonary disease with (acute) exacerbation; N40.0 Benign prostatic hyperplasia without lower urinary tract symptoms; J20.9 Acute bronchitis, unspecified; Z87.891 Personal history of nicotine dependence; Z79.899 Other long term (current) drug therapy; Z82.49 Family history of ischemic heart disease and other diseases of the circulatory system; J32.9 Chronic sinusitis, unspecified; K04.7 Periapical abscess without sinus
CPT/HCPCS: 36415; 36600; 70487; 71045; 80048; 81001; 82803; 84484; 85007; 85025; 87040; 87076; 87086; 87186; 93005; 93010; 94640; 94644; 94760; 96374; G0378; A9270-GY; J0692; J1650; J1956; J2920; J7512; Q9967